=== PATIENT | female | born 1995 | race Caucasian/White ===

== ENCOUNTER 2020-08-06 06:56 | Emergency (ER) | payer MEDICAID ==
[~2020-08-06] VITALS: Ht 172.7 cm; Wt 73.0 kg
[2020-08-06] MEDS ORDERED: SODIUM CHLORIDE 0.9% 1,000 ML IV ONE (07:33)
[2020-08-06] MEDS ORDERED: ONDANSETRON HCL 4MG/2ML INJ IV ONE (07:45)
[2020-08-06 07:56] LABS: BASOPHILS % 0.2 % (0.0-2.0); EOSINOPHILS % 0.5 % (0.0-5.0); HEMATOCRIT. 45.5 % (36.0-48.0); HEMOGLOBIN. 14.9 g/dL (12.0-16.0); LYMPHOCYTES % 13.3 % (20.0-50.0); MEAN CORPUSCULAR HEMOGLOBIN 31.8 pg (28.0-32.0); MEAN CORPUSCULAR VOLUME 96.8 fL (81.0-99.0); MEAN PLATELET VOLUME 10.6 fl (7.4-10.4); MONOCYTES % 6.3 % (2.0-8.0); NEUTROPHILS % 79.7 % (40.0-76.0); PLATELET 269 x1000/uL (130-400); RED BLOOD CELL COUNT 4.69 mill/uL (4.2-5.4)
[2020-08-06 08:01] LABS: CHLORIDE 105 mEq/L (98-107)
[2020-08-06 08:06] LABS: ETHANOL BLOOD 11 mg/dL
[2020-08-06 08:22] LABS: HCG SCREEN NEGATIVE
[2020-08-06 12:57] LABS: CLARITY URINE CLOUDY (CLEAR); COLOR URINE YELLOW (YELLOW); KETONES URINE TRACE (NEGATIVE); LEUKOCYTE ESTERASE URINE TRACE (NEGATIVE); NITRITE URINE NEGATIVE (NEGATIVE); OCCULT BLOOD URINE NEGATIVE (NEGATIVE); PROTEIN URINE 1+ (NEGATIVE); SPECIFIC GRAVITY URINE 1.021 (1.005-1.030); UROBILINOGEN URINE 0.2 E.U./dL (0.2-1.0)
[2020-08-06 13:36] LABS: *AMPHETAMINES SCREEN URINE NEGATIVE (NEGATIVE); *BARBITURATES SCREEN URINE NEGATIVE (NEGATIVE); METHADONE URINE SCREEN NEGATIVE (NEGATIVE); OPIATES URINE SCREEN NEGATIVE (NEGATIVE); PHENCYCLIDINE URINE SCREEN NEGATIVE (NEGATIVE)
[2020-08-06 14:16] LABS: *BENZODIAZEPINES SCREEN URINE PRESUMTIVE POSITIVE (NEGATIVE); *COCAINE SCREEN URINE PRESUMTIVE POSITIVE (NEGATIVE); CANNABINOID URINE SCREEN PRESUMTIVE POSITIVE (NEGATIVE)
[2020-08-06 16:32] VITALS: BP 127/80
== END 2020-08-06 16:37 | disposition home or self-care (01) ==
LOC: ER 07:24
DX: T40.2X1A Poisoning by other opioids, accidental (unintentional), initial encounter (principal); F11.129 Opioid abuse with intoxication, unspecified; N39.0 Urinary tract infection, site not specified; F14.129 Cocaine abuse with intoxication, unspecified; F12.129 Cannabis abuse with intoxication, unspecified; F15.10 Other stimulant abuse, uncomplicated; Y92.89 Other specified places as the place of occurrence of the external cause; R03.0 Elevated blood-pressure reading, without diagnosis of hypertension
CPT/HCPCS: 36415; 80053; 80305; 80307; 80320; 80329; 81003; 81025; 83735; 84703; 85025; 87086; 93005; 96361; 96374; 99284; J2405; J7030; G0480

== ENCOUNTER 2020-08-13 15:37 | Emergency (ER) | payer MEDICAID ==
[~2020-08-13] VITALS: Ht 175.3 cm; Wt 73.0 kg
[2020-08-13] MEDS ORDERED: IBUPROFEN 600MG TABLET PO STA (16:14)
[2020-08-13 17:47] LABS: CLARITY URINE CLOUDY (CLEAR); COLOR URINE DARK YELLOW (YELLOW); KETONES URINE TRACE (NEGATIVE); LEUKOCYTE ESTERASE URINE TRACE (NEGATIVE); NITRITE URINE NEGATIVE (NEGATIVE); OCCULT BLOOD URINE NEGATIVE (NEGATIVE); PROTEIN URINE TRACE (NEGATIVE); SPECIFIC GRAVITY URINE 1.027 (1.005-1.030)
[2020-08-13 17:50] LABS: BASOPHILS % 0.7 % (0.0-2.0); EOSINOPHILS % 2.3 % (0.0-5.0); HEMOGLOBIN. 14.4 g/dL (12.0-16.0); LYMPHOCYTES % 27.5 % (20.0-50.0); MEAN CORPUSCULAR HEMOGLOBIN 31.9 pg (28.0-32.0); MEAN CORPUSCULAR VOLUME 95.1 fL (81.0-99.0); MEAN PLATELET VOLUME 10.2 fl (7.4-10.4); MONOCYTES % 7.8 % (2.0-8.0); NEUTROPHILS % 61.7 % (40.0-76.0); PLATELET 316 x1000/uL (130-400); RED BLOOD CELL COUNT 4.53 mill/uL (4.2-5.4); RED CELL DISTRIBUTION WIDTH 12.9 % (11.6-14.6)
[2020-08-13 17:58] LABS: *AMPHETAMINES SCREEN URINE NEGATIVE (NEGATIVE); *BARBITURATES SCREEN URINE NEGATIVE (NEGATIVE); *BENZODIAZEPINES SCREEN URINE NEGATIVE (NEGATIVE); *COCAINE SCREEN URINE NEGATIVE (NEGATIVE); METHADONE URINE SCREEN NEGATIVE (NEGATIVE); OPIATES URINE SCREEN NEGATIVE (NEGATIVE); PHENCYCLIDINE URINE SCREEN NEGATIVE (NEGATIVE)
[2020-08-13 18:03] LABS: CANNABINOID URINE SCREEN PRESUMTIVE POSITIVE (NEGATIVE)
[2020-08-13 18:13] LABS: CHLORIDE 108 mEq/L (98-107)
[2020-08-13 18:49] VITALS: BP 122/80
== END 2020-08-13 19:22 | disposition home or self-care (01) ==
LOC: ER 15:37
DX: R07.89 Other chest pain (principal); N39.0 Urinary tract infection, site not specified; F12.90 Cannabis use, unspecified, uncomplicated; Z86.59 Personal history of other mental and behavioral disorders
CPT/HCPCS: 36415; 71045; 80053; 80305; 81003; 81025; 84484; 85025; 93005; 99285

== ENCOUNTER 2020-10-10 13:12 | Emergency (ER) | payer MEDICAID ==
[~2020-10-10] VITALS: Ht 175.3 cm; Wt 79.5 kg
[2020-10-10 13:24] VITALS: BP 116/66
[2020-10-10] MEDS ORDERED: SODIUM CHLORIDE 0.9% 1000ML BAG (SEPSIS BOLUS) IV ONE (14:30)
[2020-10-10 14:58] LABS: CLARITY URINE CLEAR (CLEAR); COLOR URINE YELLOW (YELLOW); KETONES URINE NEGATIVE (NEGATIVE); LEUKOCYTE ESTERASE URINE TRACE (NEGATIVE); NITRITE URINE NEGATIVE (NEGATIVE); OCCULT BLOOD URINE NEGATIVE (NEGATIVE); PH URINE 6.5 (4.5-8.0); PROTEIN URINE NEGATIVE (NEGATIVE); SPECIFIC GRAVITY URINE 1.026 (1.005-1.030); UROBILINOGEN URINE 0.2 E.U./dL (0.2-1.0)
[2020-10-10 15:19] LABS: *AMPHETAMINES SCREEN URINE NEGATIVE (NEGATIVE)
[2020-10-10 15:21] LABS: *BARBITURATES SCREEN URINE NEGATIVE (NEGATIVE); *BENZODIAZEPINES SCREEN URINE NEGATIVE (NEGATIVE); *COCAINE SCREEN URINE NEGATIVE (NEGATIVE)
[2020-10-10 15:22] LABS: CANNABINOID URINE SCREEN NEGATIVE (NEGATIVE); METHADONE URINE SCREEN NEGATIVE (NEGATIVE); OPIATES URINE SCREEN NEGATIVE (NEGATIVE); PHENCYCLIDINE URINE SCREEN NEGATIVE (NEGATIVE)
== END 2020-10-10 15:00 | disposition home or self-care (01) ==
LOC: ER 13:12
DX: N39.0 Urinary tract infection, site not specified (principal); J02.9 Acute pharyngitis, unspecified; F11.10 Opioid abuse, uncomplicated; F12.90 Cannabis use, unspecified, uncomplicated
CPT/HCPCS: 80305; 81003; 81025; 87086; 93005; 99284; J7030

== ENCOUNTER 2021-01-26 17:59 | Emergency (ER) | payer MEDICAID ==
[~2021-01-26] VITALS: Ht 172.7 cm; Wt 77.0 kg
[2021-01-26] MEDS ORDERED: ACETAMINOPHEN 325MG TABLET PO ONE (18:30)
[2021-01-26 18:56] LABS: BASOPHILS % 0.2 % (0.0-2.0); EOSINOPHILS % 0.4 % (0.0-5.0); HEMATOCRIT. 41.8 % (36.0-48.0); HEMOGLOBIN. 14.2 g/dL (12.0-16.0); LYMPHOCYTES % 7.5 % (20.0-50.0); MEAN CORPUSCULAR HEMOGLOBIN 34.2 pg (28.0-32.0); MEAN CORPUSCULAR VOLUME 101.1 fL (81.0-99.0); MEAN PLATELET VOLUME 9.5 fl (7.4-10.4); MONOCYTES % 9.6 % (2.0-8.0); NEUTROPHILS % 82.3 % (40.0-76.0); PLATELET 181 x1000/uL (130-400); RED BLOOD CELL COUNT 4.14 mill/uL (4.2-5.4); RED CELL DISTRIBUTION WIDTH 13.3 % (11.6-14.6)
[2021-01-26 18:58] LABS: CHLORIDE 102 mEq/L (98-107)
[2021-01-26 19:05] LABS: HCG SCREEN NEGATIVE
[2021-01-26 19:13] LABS: CLARITY URINE CLOUDY (CLEAR); COLOR URINE YELLOW (YELLOW); KETONES URINE NEGATIVE (NEGATIVE); LEUKOCYTE ESTERASE URINE 3+ (NEGATIVE); NITRITE URINE NEGATIVE (NEGATIVE); OCCULT BLOOD URINE TRACE (NEGATIVE); PH URINE 6.5 (4.5-8.0); PROTEIN URINE TRACE (NEGATIVE); SPECIFIC GRAVITY URINE 1.011 (1.005-1.030); UROBILINOGEN URINE 0.2 E.U./dL (0.2-1.0)
[2021-01-26] MEDS ORDERED: KETOROLAC 30MG/ML VIAL IV STA (20:38)
[2021-01-26] MEDS ORDERED: POTASSIUM CHLORIDE 20MEQ TABLET SR PO NR (20:45)
[2021-01-26] MEDS ORDERED: SODIUM CHLORIDE 0.9% 1,000 ML IV ONE (20:45)
[2021-01-26] MEDS ORDERED: CEPH500C2 MT (21:59)
[2021-01-26] MEDS ORDERED: IBUP-2029 MT (21:59)
[2021-01-26 22:30] VITALS: BP 126/72
== END 2021-01-26 22:34 | disposition home or self-care (01) ==
LOC: ER 17:59
DX: D27.0 Benign neoplasm of right ovary (principal); N39.0 Urinary tract infection, site not specified; R31.0 Gross hematuria; R03.0 Elevated blood-pressure reading, without diagnosis of hypertension; I49.9 Cardiac arrhythmia, unspecified
CPT/HCPCS: 36415; 74176; 80053; 81003; 81025; 84703; 85025; 93005; 96361; 96374; 99285; J1885; J7030

== ENCOUNTER 2021-02-28 15:47 | Emergency (ER) | payer MEDICAID ==
[~2021-02-28] VITALS: Ht 177.8 cm; Wt 79.0 kg
[~2021-02-28 15:47] MED LIST: CEPH500C2 MT; IBUP-2029 MT
[2021-02-28] MEDS ORDERED: KETOROLAC 60MG/2ML VIAL IM STA (18:23)
[2021-02-28 19:51] LABS: BASOPHILS % 0.7 % (0.0-2.0); HEMATOCRIT. 39.8 % (36.0-48.0); HEMOGLOBIN. 13.9 g/dL (12.0-16.0); LYMPHOCYTES % 21.4 % (20.0-50.0); MEAN CORPUSCULAR HEMOGLOBIN 34.3 pg (28.0-32.0); MEAN CORPUSCULAR VOLUME 98.3 fL (81.0-99.0); MEAN PLATELET VOLUME 9.1 fl (7.4-10.4); MONOCYTES % 9.3 % (2.0-8.0); NEUTROPHILS % 67.6 % (40.0-76.0); PLATELET 216 x1000/uL (130-400); RED BLOOD CELL COUNT 4.05 mill/uL (4.2-5.4); RED CELL DISTRIBUTION WIDTH 13.2 % (11.6-14.6)
[2021-02-28 20:06] LABS: CHLORIDE 106 mEq/L (98-107)
[2021-02-28 20:13] LABS: HCG SCREEN NEGATIVE
[2021-02-28 20:32] LABS: CLARITY URINE CLEAR (CLEAR); COLOR URINE YELLOW (YELLOW); KETONES URINE 1+ (NEGATIVE); LEUKOCYTE ESTERASE URINE 1+ (NEGATIVE); NITRITE URINE NEGATIVE (NEGATIVE); OCCULT BLOOD URINE NEGATIVE (NEGATIVE); PROTEIN URINE NEGATIVE (NEGATIVE); SPECIFIC GRAVITY URINE 1.025 (1.005-1.030); UROBILINOGEN URINE 0.2 E.U./dL (0.2-1.0)
[2021-02-28] MEDS ORDERED: IBUP-2029 MT (20:55)
[2021-02-28] MEDS ORDERED: NITR-87 MT (20:55)
[2021-02-28 21:15] VITALS: BP 122/78
== END 2021-02-28 21:28 | disposition home or self-care (01) ==
LOC: ER 15:47
DX: R07.89 Other chest pain (principal); N83.209 Unspecified ovarian cyst, unspecified side
CPT/HCPCS: 36415; 71045; 76830; 76856; 80053; 81003; 84703; 85025; 93005; 96372; 99285; J1885

== ENCOUNTER 2021-04-05 12:53 | Emergency (ER) | payer MEDICAID ==
[~2021-04-05] VITALS: Ht 177.8 cm; Wt 79.0 kg
[~2021-04-05 12:53] MED LIST changes: +NITR-87 MT
[2021-04-05 13:57] LABS: CLARITY URINE CLOUDY (CLEAR); COLOR URINE YELLOW (YELLOW); KETONES URINE NEGATIVE (NEGATIVE); LEUKOCYTE ESTERASE URINE 1+ (NEGATIVE); NITRITE URINE POSITIVE (NEGATIVE); OCCULT BLOOD URINE NEGATIVE (NEGATIVE); PH URINE 6.5 (4.5-8.0); PROTEIN URINE NEGATIVE (NEGATIVE); SPECIFIC GRAVITY URINE 1.016 (1.005-1.030); UROBILINOGEN URINE 0.2 E.U./dL (0.2-1.0)
[2021-04-05] MEDS ORDERED: ONDANSETRON 4MG ODT PO STA (14:16)
[2021-04-05] MEDS ORDERED: KETOROLAC 30MG/ML VIAL IM STA (14:30)
[2021-04-05 14:56] VITALS: BP 117/85
[2021-04-05] MEDS ORDERED: AZITHROMYCIN 500 MG TABLET PO ONE (15:45)
[2021-04-05] MEDS ORDERED: CEFTRIAXONE SODIUM 500 MG/VIAL IM ONE (15:45)
[2021-04-05] MEDS ORDERED: LIDOCAINE HCL 1% 20ML VIAL (Pyxis) INJ INFIL ONE (15:45)
[2021-04-05] MEDS ORDERED: ONDA4TAB11 PO (15:53)
[2021-04-05] MEDS ORDERED: AMOX-424 PO (15:53)
[2021-04-05] MEDS ORDERED: ACET-2708 PO (15:53)
== END 2021-04-05 17:04 | disposition home or self-care (01) ==
LOC: ER 12:53
DX: N39.0 Urinary tract infection, site not specified (principal); N72 Inflammatory disease of cervix uteri; N83.209 Unspecified ovarian cyst, unspecified side; R03.0 Elevated blood-pressure reading, without diagnosis of hypertension
CPT/HCPCS: 81003; 81025; 87077; 87086; 87186; 87210; 87491; 87591; 96372; 99284; J0696; J1885; J3490; Q0162; Z7610

== ENCOUNTER 2022-05-04 11:23 | Emergency (ER) | payer MEDICAID ==
[~2022-05-04] VITALS: Ht 175.3 cm; Wt 70.0 kg
[~2022-05-04 11:23] MED LIST changes: +ACET-2708 PO; +AMOX-424 PO; +ONDA4TAB11 PO
[2022-05-04 11:29] VITALS: BP 115/73
[2022-05-04] MEDS ORDERED: ONDANSETRON HCL 4MG/2ML INJ IV STA (11:51)
[2022-05-04] MEDS ORDERED: SODIUM CHLORIDE 0.9% 1,000 ML IV ONE (12:00)
[2022-05-04 12:17] LABS: BASOPHILS % 0.5 % (0.0-2.0); EOSINOPHILS % 1.8 % (0.0-5.0); HEMATOCRIT. 38.9 % (36.0-48.0); HEMOGLOBIN. 13.2 g/dL (12.0-16.0); LYMPHOCYTES % 18.9 % (20.0-50.0); MEAN CORPUSCULAR HEMOGLOBIN 31.7 pg (28.0-32.0); MEAN CORPUSCULAR VOLUME 93.1 fL (81.0-99.0); MEAN PLATELET VOLUME 9.8 fl (7.4-10.4); NEUTROPHILS % 69.8 % (40.0-76.0); PLATELET 240 x1000/uL (130-400); RED BLOOD CELL COUNT 4.17 mill/uL (4.2-5.4); RED CELL DISTRIBUTION WIDTH 12.7 % (11.6-14.6)
[2022-05-04 12:24] LABS: CHLORIDE 105 mEq/L (98-107)
[2022-05-04 12:48] LABS: B-HCG QUANTITATIVE 77827 mIU/mL (<3)
[2022-05-04 14:10] LABS: CLARITY URINE CLEAR (CLEAR); COLOR URINE YELLOW (YELLOW); KETONES URINE NEGATIVE (NEGATIVE); LEUKOCYTE ESTERASE URINE NEGATIVE (NEGATIVE); NITRITE URINE NEGATIVE (NEGATIVE); OCCULT BLOOD URINE NEGATIVE (NEGATIVE); PH URINE 8.5 (4.5-8.0); PROTEIN URINE NEGATIVE (NEGATIVE); SPECIFIC GRAVITY URINE 1.007 (1.005-1.030); UROBILINOGEN URINE 0.2 E.U./dL (0.2-1.0)
[2022-05-04] MEDS ORDERED: ONDA4TAB11 PO (14:13)
== END 2022-05-04 14:24 | disposition home or self-care (01) ==
LOC: ER 11:23
DX: O34.81 Maternal care for other abnormalities of pelvic organs, first trimester (principal); N83.201 Unspecified ovarian cyst, right side; Z3A.09 9 weeks gestation of pregnancy
CPT/HCPCS: 36415; 76700; 76801; 76817; 80053; 81003; 83690; 84702; 85025; 86850; 86900; 86901; 99284; J2405; J7030

== ENCOUNTER 2022-05-14 16:16 | Inpatient (IN) | payer MEDICAID ==
[~2022-05-14] VITALS: Ht 175.3 cm; Wt 69.9 kg
[2022-05-14] MEDS ORDERED: MORPHINE SULFATE 4 MG/ML CPJ (NOT FOR IM USE) IV ONE (16:45)
[2022-05-14] MEDS ORDERED: ACETAMINOPHEN 325MG TABLET PO ONE (18:45)
[2022-05-14 19:11] LABS: BASOPHILS % 0.2 % (0.0-2.0); EOSINOPHILS % 0.7 % (0.0-5.0); HEMATOCRIT. 36.2 % (36.0-48.0); HEMOGLOBIN. 12.3 g/dL (12.0-16.0); LYMPHOCYTES % 13.8 % (20.0-50.0); MEAN CORPUSCULAR HEMOGLOBIN 31.8 pg (28.0-32.0); MEAN CORPUSCULAR VOLUME 94.1 fL (81.0-99.0); MEAN PLATELET VOLUME 10.3 fl (7.4-10.4); MONOCYTES % 7.7 % (2.0-8.0); NEUTROPHILS % 77.6 % (40.0-76.0); PLATELET 219 x1000/uL (130-400); RED BLOOD CELL COUNT 3.85 mill/uL (4.2-5.4); RED CELL DISTRIBUTION WIDTH 12.6 % (11.6-14.6)
[2022-05-14 19:25] LABS: CHLORIDE 108 mEq/L (98-107)
[2022-05-14 19:49] LABS: B-HCG QUANTITATIVE 48258 mIU/mL (<3)
[2022-05-14 20:24] LABS: CLARITY URINE CLEAR (CLEAR); COLOR URINE YELLOW (YELLOW); KETONES URINE TRACE (NEGATIVE); LEUKOCYTE ESTERASE URINE 1+ (NEGATIVE); NITRITE URINE NEGATIVE (NEGATIVE); OCCULT BLOOD URINE NEGATIVE (NEGATIVE); PROTEIN URINE NEGATIVE (NEGATIVE); SPECIFIC GRAVITY URINE 1.021 (1.005-1.030); UROBILINOGEN URINE 0.2 E.U./dL (0.2-1.0)
[2022-05-14] MEDS ORDERED: MORPHINE SULFATE 4 MG/ML CPJ (NOT FOR IM USE) IV NR (20:55)
[2022-05-14] MEDS ORDERED: NALOXONE HCL 0.4MG/ML VIAL IV PRN (21:00)
[2022-05-14] MEDS ORDERED: ROCURONIUM BROMIDE 10MG/ML VIAL 5ML IV ONE (23:22)
[2022-05-14] MEDS ORDERED: ETOMIDATE 2MG/ML 10ML VIAL IV ONE (23:22)
[2022-05-14] MEDS ORDERED: SUCCINYLCHOLINE CHLORIDE 200MG/10ML IV ONE (23:22)
[2022-05-14] MEDS ORDERED: NEOSTIGMINE METHYLSULFATE 1MG/ML 10 ML VIAL ONE (23:44)
[2022-05-14] MEDS ORDERED: GLYCOPYRROLATE 0.2 MG/ML 2ML VIAL ONE ×2 (23:45)
[2022-05-15] MEDS ORDERED: LABETALOL 5MG/ML SYR 20 MG/4 ML SYRINGE IV PRN
[2022-05-15] MEDS ORDERED: MEPERIDINE HCL/PF 25MG/ML CPJ IV PRN
[2022-05-15] MEDS ORDERED: FENTANYL CITRATE/PF 50MCG/ML 2ML VIAL ONE (00:09)
[2022-05-15] MEDS ORDERED: CEFAZOLIN 1000MG PREMIX 50 ML IV SCH (00:15)
[2022-05-15] MEDS ORDERED: ACETAMINOPHEN 650MG SUPP PR PRN ×2 (00:15)
[2022-05-15] MEDS ORDERED: ONDANSETRON HCL 4MG/2ML INJ IV PRN ×2 (00:15)
[2022-05-15] MEDS: HYDROMORPHONE HCL/PF 2MG/ML CPJ IV PRN ×5 (00:34→18:52)
[2022-05-15] MEDS: DEXT 5%/0.45% NACL KCL 20MEQ/L 1,000 ML IV SCH ×3 (01:25→22:13)
[2022-05-15 03:00] VITALS: BP 96/47
[2022-05-15] MEDS ORDERED: KETOROLAC 30MG/ML VIAL IM NR (03:45)
[2022-05-15] MEDS ORDERED: IBUPROFEN 800MG TABLET PO PRN (03:45)
[2022-05-15] MEDS ORDERED: KETOROLAC 30MG/ML VIAL IV PRN (03:45)
[2022-05-15] MEDS: HYDROCODONE/ACETAMINOPHEN 5/325MG TABLET PO PRN ×3 (04:11→22:02)
[2022-05-15] MEDS ORDERED: SIMETHICONE 80MG TABLET CHEW PO PRN (07:30)
[2022-05-15 08:00] VITALS: BP 89/52
[2022-05-15] MEDS: CEFAZOLIN 1000MG PREMIX 50 ML IV SCH ×3 (09:11→22:07)
[2022-05-15] MEDS: FAMOTIDINE 20MG/2ML VIAL IV SCH ×2 (09:11→22:13)
[2022-05-15] MEDS: DOCUSATE SODIUM 100MG CAPSULE PO SCH ×2 (09:11→18:50)
[2022-05-15] MEDS: PRENATAL VIT/FE FUMARATE/FA TABLET PO SCH (09:11)
[2022-05-15 10:26] LABS: BASOPHILS % 0.3 % (0.0-2.0); EOSINOPHILS % 1.6 % (0.0-5.0); HEMATOCRIT. 31.4 % (36.0-48.0); HEMOGLOBIN. 10.6 g/dL (12.0-16.0); LYMPHOCYTES % 17.4 % (20.0-50.0); MEAN CORPUSCULAR HEMOGLOBIN 32.1 pg (28.0-32.0); MEAN CORPUSCULAR VOLUME 94.9 fL (81.0-99.0); MEAN PLATELET VOLUME 9.7 fl (7.4-10.4); MONOCYTES % 10.2 % (2.0-8.0); NEUTROPHILS % 70.5 % (40.0-76.0); PLATELET 170 x1000/uL (130-400); RED BLOOD CELL COUNT 3.31 mill/uL (4.2-5.4); RED CELL DISTRIBUTION WIDTH 12.7 % (11.6-14.6)
[2022-05-15 12:00] VITALS: BP 93/43
[2022-05-15 20:00] VITALS: BP 105/52
[2022-05-16] VITALS: BP 99/47
[2022-05-16 04:00] VITALS: BP 103/50
[2022-05-16] MEDS: HYDROMORPHONE HCL/PF 2MG/ML CPJ IV PRN (05:26)
[2022-05-16] MEDS: CEFAZOLIN 1000MG PREMIX 50 ML IV SCH ×3 (05:32→21:12)
[2022-05-16] MEDS: DEXT 5%/0.45% NACL KCL 20MEQ/L 1,000 ML IV SCH ×2 (05:52→16:30)
[2022-05-16 06:51] LABS: BASOPHILS % 0.2 % (0.0-2.0); EOSINOPHILS % 1.5 % (0.0-5.0); HEMATOCRIT. 29.3 % (36.0-48.0); LYMPHOCYTES % 16.3 % (20.0-50.0); MEAN CORPUSCULAR HEMOGLOBIN 31.9 pg (28.0-32.0); MEAN CORPUSCULAR VOLUME 93.9 fL (81.0-99.0); MEAN PLATELET VOLUME 10.1 fl (7.4-10.4); MONOCYTES % 7.4 % (2.0-8.0); NEUTROPHILS % 74.6 % (40.0-76.0); PLATELET 181 x1000/uL (130-400); RED BLOOD CELL COUNT 3.13 mill/uL (4.2-5.4); RED CELL DISTRIBUTION WIDTH 12.7 % (11.6-14.6)
[2022-05-16 08:00] VITALS: BP 104/56
[2022-05-16] MEDS: PRENATAL VIT/FE FUMARATE/FA TABLET PO SCH (08:41)
[2022-05-16] MEDS: FAMOTIDINE 20MG/2ML VIAL IV SCH (08:41)
[2022-05-16] MEDS: DOCUSATE SODIUM 100MG CAPSULE PO SCH ×2 (08:41→17:44)
[2022-05-16] MEDS: HYDROCODONE/ACETAMINOPHEN 5/325MG TABLET PO PRN ×3 (08:48→17:50)
[2022-05-16 12:00] VITALS: BP 105/55
[2022-05-16 16:00] VITALS: BP 105/59
[2022-05-16 20:00] VITALS: BP 104/53
[2022-05-16] MEDS: FAMOTIDINE 20MG TABLET PO SCH (21:16)
[2022-05-17] VITALS: BP 107/44
[2022-05-17 04:00] VITALS: BP 99/51
[2022-05-17 08:00] VITALS: BP 102/53
[2022-05-17] MEDS: HYDROCODONE/ACETAMINOPHEN 5/325MG TABLET PO PRN ×3 (08:15→22:51)
[2022-05-17] MEDS: DOCUSATE SODIUM 100MG CAPSULE PO SCH ×2 (08:17→17:00)
[2022-05-17] MEDS: FAMOTIDINE 20MG TABLET PO SCH ×2 (08:17→20:21)
[2022-05-17] MEDS: PRENATAL VIT/FE FUMARATE/FA TABLET PO SCH (08:18)
[2022-05-17 12:00] VITALS: BP 97/51
[2022-05-17 15:50] VITALS: BP 100/52
[2022-05-17 20:00] VITALS: BP 102/52
[2022-05-18] VITALS: BP 98/49
[2022-05-18 04:00] VITALS: BP 91/42
[2022-05-18 08:00] VITALS: BP 96/44
[2022-05-18] MEDS: PRENATAL VIT/FE FUMARATE/FA TABLET PO SCH (08:43)
[2022-05-18] MEDS: DOCUSATE SODIUM 100MG CAPSULE PO SCH ×2 (08:43→18:02)
[2022-05-18] MEDS: FAMOTIDINE 20MG TABLET PO SCH ×2 (08:43→20:56)
[2022-05-18] MEDS: HYDROCODONE/ACETAMINOPHEN 5/325MG TABLET PO PRN ×3 (09:02→23:19)
[2022-05-18 12:00] VITALS: BP 105/50
[2022-05-18 16:00] VITALS: BP 98/58
[2022-05-18 20:15] VITALS: BP 107/54
[2022-05-19] VITALS: BP 111/58
[2022-05-19 04:00] VITALS: BP 97/50
[2022-05-19 08:00] VITALS: BP 95/50
[2022-05-19] MEDS: PRENATAL VIT/FE FUMARATE/FA TABLET PO SCH (09:09)
[2022-05-19] MEDS: DOCUSATE SODIUM 100MG CAPSULE PO SCH (09:09)
[2022-05-19] MEDS: FAMOTIDINE 20MG TABLET PO SCH (09:10)
[2022-05-19] MEDS: HYDROCODONE/ACETAMINOPHEN 5/325MG TABLET PO PRN (09:15)
[2022-05-19 09:31] VITALS: BP 105/55
== END 2022-05-19 10:02 | disposition home or self-care (01) | DRG 547 ==
LOC: ER 16:16 → MICUSO 05-15 00:17 → 6EST 05-15 03:35
PROVIDERS: ADMIT Specialist; ATTEND Specialist
PROC: 0UB00ZZ Excision of Right Ovary, Open Approach (ICD-10-PCS; principal; 2022-05-15)
DX: O34.81 Maternal care for other abnormalities of pelvic organs, first trimester (principal); O99.321 Drug use complicating pregnancy, first trimester; D27.0 Benign neoplasm of right ovary; O99.891 Other specified diseases and conditions complicating pregnancy; F12.10 Cannabis abuse, uncomplicated; O99.331 Smoking (tobacco) complicating pregnancy, first trimester; Z3A.11 11 weeks gestation of pregnancy; Z20.822 Contact with and (suspected) exposure to COVID-19; F17.200 Nicotine dependence, unspecified, uncomplicated
CPT/HCPCS: 36415; 76801; 76815; 76857; 80053; 81003; 84702; 85025; 86592; 86703; 86762; 86850; 86900; 87070; 87075; 87340; 87426; 88304; 99291; C9803; J0330; J0690; J1170; J1885; J2270; J2405; J2710; J3010; J3490

== ENCOUNTER 2022-05-26 11:39 | Emergency (ER) | payer MEDICAID ==
[~2022-05-26] VITALS: Ht 175.3 cm; Wt 70.0 kg
[2022-05-26 11:55] VITALS: BP 109/59
[2022-05-26] MEDS ORDERED: ACETAMINOPHEN 325MG TABLET PO PRN (14:00)
[2022-05-26] MEDS ORDERED: OFLO5DRO4 LEFT EAR (14:37)
[2022-05-26] MEDS ORDERED: ACET-2708 MT (14:37)
== END 2022-05-26 14:40 | disposition left against medical advice (07) ==
LOC: ER 11:39
DX: H92.02 Otalgia, left ear (principal); Z87.440 Personal history of urinary (tract) infections; R10.2 Pelvic and perineal pain
CPT/HCPCS: 81025; 99283

== ENCOUNTER 2022-08-18 22:33 | Emergency (ER) | payer MEDICAID ==
[~2022-08-18] VITALS: Ht 175.3 cm; Wt 69.0 kg
[~2022-08-18 22:33] MED LIST changes: +ACET-2708 MT; +OFLO5DRO4 LEFT EAR
[2022-08-18 22:39] VITALS: BP 127/68
[2022-08-19] MEDS ORDERED: ACET-2708 MT (01:05)
[2022-08-19] MEDS ORDERED: ACETAMINOPHEN 325MG TABLET PO ONE (01:15)
[2022-08-19] MEDS ORDERED: TETANUS, DIPHTHERIA, PERTUSSIS VAC/PF 0.5ML (>10YR OLD) IM ONE (01:15)
== END 2022-08-19 06:39 | disposition home or self-care (01) ==
LOC: ER 22:33
DX: S00.01XA Abrasion of scalp, initial encounter (principal); Y08.89XA Assault by other specified means, initial encounter; Y93.89 Activity, other specified; Y92.89 Other specified places as the place of occurrence of the external cause; Y99.8 Other external cause status; F17.290 Nicotine dependence, other tobacco product, uncomplicated
CPT/HCPCS: 99282